=== PATIENT | male | born 1955 | race Caucasian/White ===

== ENCOUNTER → 2024-03-24 | Day surgery (SDC) | payer BC | END | disposition home or self-care (01) | LOC: JRADIR 12:28 | PROVIDERS: ATTEND Orthopaedic Surgery | PROC: 0R9K3ZZ Drainage of Left Shoulder Joint, Percutaneous Approach (ICD-10-PCS; principal; 2024-03-24) | DX: M25.512 Pain in left shoulder (principal) | CPT/HCPCS: 10005; 76942; 87070; 87075; 87102; 87116; 87205; 87206; 87210 ==

== ENCOUNTER 2024-04-27 06:33 | Day surgery (SDC) | payer BC, MEDICARE ==
[2024-04-22 15:57] VITALS: BMI 22.1
[2024-04-27] MEDS ORDERED: METOCLOPRAMIDE HCL INJECTION 10 MG/2 ML VIAL ONE (07:02)
[2024-04-27] MEDS ORDERED: ONDANSETRON 4 MG/2 ML VIAL ONE (07:02)
[2024-04-27] MEDS ORDERED: DEXAMETHASONE SOD PHOSPHATE 4 MG/1 ML VIAL ONE (07:02)
[2024-04-27] MEDS ORDERED: ceFAZolin SODIUM 1 GM VIAL ONE (07:02)
[2024-04-27] MEDS ORDERED: VANCOMYCIN 1,000 MG VIAL (RESTRICTED TO ID ONLY) ONE ×2 (07:02→07:08)
[2024-04-27] MEDS ORDERED: TRANEXAMIC ACID 1000 MG/10 ML VIAL ONE ×2 (07:02→07:08)
[2024-04-27] MEDS ORDERED: PHENYLEPHRINE HCL 10 MG/1 ML SINGLE DOSE VIAL ONE ×2 (07:03→07:08)
[2024-04-27] MEDS ORDERED: ROCURONIUM BROMIDE 50 MG/5 ML SYRINGE ONE ×2 (07:04→09:10)
[2024-04-27] MEDS ORDERED: SUCCINYLCHOLINE CHLORIDE 200 MG/10 ML SYRINGE ONE (07:04)
[2024-04-27] MEDS ORDERED: PROPOFOL 20 ML ONE ×3 (07:04→11:36)
[2024-04-27] MEDS ORDERED: MIDAZOLAM HCL 2 MG/2 ML SINGLE DOSE VIAL ONE (07:05)
[2024-04-27] MEDS ORDERED: BUPIVACAINE LIPOSOME/PF (EXPAREL) 266 MG/20 ML VIAL ONE (07:14)
[2024-04-27] MEDS ORDERED: BUPIVACAINE HCL/PF 0.5% (5MG/ML) 10 ML VIAL ONE (07:14)
[2024-04-27] MEDS ORDERED: GLYCOPYRROLATE 0.2 MG/1 ML VIAL ONE (08:09)
[2024-04-27] MEDS ORDERED: NALOXONE HCL 0.4 MG/ML VIAL IVPUSH PRN (08:49)
[2024-04-27] MEDS ORDERED: oxyCODONE HCL 5 MG TABLET PO PRN ×2 (08:49)
[2024-04-27] MEDS ORDERED: ONDANSETRON 4 MG/2 ML VIAL IVPUSH PRN ×2 (08:49→12:24)
[2024-04-27] MEDS ORDERED: SUGAMMADEX SODIUM 200 MG/2 ML VIAL ONE (09:10)
[2024-04-27] MEDS ORDERED: ACETAMINOPHEN INJECTION 100 ML ONE (10:31)
[2024-04-27] MEDS: TRANEXAMIC ACID 1000 MG/10 ML VIAL IVPB ONE ×2 (11:05)
[2024-04-27] MEDS: VANCOMYCIN 1,000 MG VIAL (RESTRICTED TO ID ONLY) IVPB ONE ×2 (11:13)
[2024-04-27] MEDS ORDERED: MAGNESIUM HYDROX 2400MG/30ML ORAL SUSPENSION 30 ML CUP PO PRN (12:24)
[2024-04-27] MEDS ORDERED: MAG HYDROX/AL HYDROX/SIMETH 30 ML UNIT-DOSE CUP PO PRN (12:24)
[2024-04-27] MEDS: LACTATED RINGERS SOLUTION 1,000 ML IV SCH ×2 (13:42→13:43)
[2024-04-27] MEDS: ACETAMINOPHEN 500 MG TABLET (FP) PO SCH (13:42)
[2024-04-27] MEDS: DOCUSATE SODIUM 100 MG CAPSULE (FP) PO SCH (13:42)
[2024-04-27] MEDS: CEFAZOLIN SODIUM 2 GM in DEXTROSE 5%-WATER 100 ML IVPB SCH (16:47)
[2024-04-27] MEDS: VANCOMYCIN/WATER FOR INJ (PEG) 1,000 MG/200 ML BAG IVPB ONE (21:22)
[2024-04-27] MEDS: ATORVASTATIN CA 10 MG TABLET (FP) PO SCH (21:22)
[2024-04-27] MEDS: SENNOSIDES/DOCUSATE COMBO (SENNA PLUS) TABLET (UD) PO SCH (21:28)
[2024-04-28] MEDS: ASPIRIN 325 MG TABLET PO SCH (07:50)
[2024-04-28 09:03] LABS: CALCIUM 8.7 mg/dl (8.5-10.1); CREATININE 0.7 mg/dl (0.6-1.3); HEMATOCRIT 39.9 % (35.4-49); HEMOGLOBIN 12.7 G/dL (11.7-16.9); MCH 32.8 pg (25.7-33.7); MCHC 31.8 g/dl (32.0-35.9); MEAN CELL VOLUME 103.4 fl (80-96); MEAN PLT VOLUME 7.6 fl (7.5-11.1); PLATELET COUNT 182.9 10^3/uL (134-434); POTASSIUM 4.1 mmol/L (3.5-5.1); RBC 3.86 10^6/uL (4.00-5.60); RDW 13.8 % (11.9-15.9); WHITE BLOOD COUNT 10.6 10^3/uL (4.0-10.8)
[2024-04-28] MEDS: PANTOPRAZOLE 40 MG TABLET PO SCH (09:37)
[2024-04-28] MEDS: MULTIVITAMINS (DAILY MVI) TABLET (FP) PO SCH (09:37)
[2024-04-28] MEDS: DUTASTERIDE 0.5 MG CAP (FP) PO SCH (09:38)
[2024-04-28 11:13] VITALS: BP 166/87; PULSE 78; RESP 19; TEMP 98.1
== END 2024-04-28 13:20 | disposition home or self-care (01) ==
LOC: SUATTDRO 06:33 → FASUSAT 06:33 → FM/S 13:02 → FASUSAT 04-28 13:20
PROVIDERS: ATTEND Internal Medicine
PROC: 0RWK0J7 Revision of Synthetic Substitute in Left Shoulder Joint, Glenoid Surface, Open Approach (ICD-10-PCS; principal; 2024-04-27 08:39)
PROC: 0QP104Z Removal of Internal Fixation Device from Sacrum, Open Approach (ICD-10-PCS; 2024-04-27 08:39)
DX: M19.012 Primary osteoarthritis, left shoulder (principal); M75.102 Unspecified rotator cuff tear or rupture of left shoulder, not specified as traumatic; M75.22 Bicipital tendinitis, left shoulder; T84.84XA Pain due to internal orthopedic prosthetic devices, implants and grafts, initial encounter; Y92.9 Unspecified place or not applicable; Y93.9 Activity, unspecified
CPT/HCPCS: 36415; 73030-TC-LT-FY; 80048; 85027; 87070; 87076; 87205; 88305-TC; 88311-TC; 94760; 97116-GP; 97162-GP; C1713; C1776; J0131

== ENCOUNTER 2024-06-30 17:36 | Inpatient (IN) | payer BC, OTHER ==
[2024-06-30] MEDS ORDERED: VANCOMYCIN HCL 1,500 MG in DEXTROSE 5%-WATER - 500 ML IVPB ONE (18:33)
[2024-06-30 18:44] LABS: BASO % 0.4 % (0-2.0); EOS % 5.3 % (0-4.5); HEMATOCRIT 44.7 % (35.4-49); HEMOGLOBIN 14.9 GM/dL (11.7-16.9); LYMPH % 26.2 % (8-40); MCH 32.5 pg (25.7-33.7); MCHC 33.3 g/dl (32.0-35.9); MEAN CELL VOLUME 97.7 fl (80-96); MONO % 7.1 % (3.8-10.2); PLATELET COUNT 187 10^3/uL (134-434); RBC 4.58 M/mm3 (4.00-5.60); RDW 13.5 % (11.9-15.9); WHITE BLOOD COUNT 5.7 K/mm3 (4.0-10.0)
[2024-06-30 18:58] LABS: INR 1.05 (0.83-1.09); PROTHROMBIN TIME (PATIENT) 11.9 SEC (9.7-13.0)
[2024-06-30 19:00] LABS: ACTIVATED PTT 31.6 SECONDS (25.2-36.5)
[2024-06-30 19:10] LABS: CHLORIDE 105 mmol/L (98-107); POTASSIUM 4.1 mmol/L (3.5-5.1); SODIUM 140 mmol/L (136-145)
[2024-06-30 19:11] LABS: CALCIUM 8.9 mg/dL (8.5-10.1)
[2024-06-30 19:12] LABS: ALBUMIN 3.7 g/dl (3.4-5.0); ANION GAP 5 mmol/L (4-13); BLOOD UREA NITROGEN 13.8 mg/dL (7-18); CO2 31 mmol/L (21-32); GLUCOSE,RANDOM 115 mg/dL (74-106)
[2024-06-30 19:15] LABS: CREATININE 0.8 mg/dL (0.55-1.3); SGOT/AST 20 U/L (15-37); SGPT/ALT 17 U/L (13-61)
[2024-06-30 19:17] LABS: BILIRUBIN,TOTAL 0.6 mg/dL (0.2-1); TOT PROT 7.4 g/dl (6.4-8.2)
[2024-06-30 19:18] LABS: ALK PHOS 146 U/L (45-117)
[2024-06-30] MEDS: VANCOMYCIN PREMIX 1.5 GM 1,500 MG/300 ML BAG IVPB ONE (19:25)
[2024-06-30 19:53] LABS: ERYTHROCYTE SEDIMENTATION RATE 5 mm/hr (0-20)
[2024-06-30] MEDS: NIFEdipine E.R. 30 MG TABLET PO ONE (21:33)
[2024-07-01 00:13] VITALS: BMI 23.0
[2024-07-01] MEDS: CLINDAMYCIN 600MG PREMIX IVPB 600 MG/50 ML BAG IVPB SCH (03:55)
[2024-07-01] MEDS: TAMSULOSIN HCL 0.4 MG CAP PO SCH (08:57)
[2024-07-01 09:31] LABS: BASO % 0.7 % (0-2.0); EOS % 6.8 % (0-4.5); HEMATOCRIT 44.1 % (35.4-49); LYMPH % 21.2 % (8-40); MCHC 33.9 g/dl (32.0-35.9); MEAN CELL VOLUME 97.2 fl (80-96); MEAN PLT VOLUME 7.1 fl (7.5-11.1); MONO % 5.5 % (3.8-10.2); NEUT % 65.8 % (42.8-82.8); PLATELET COUNT 199 10^3/uL (134-434); RBC 4.54 M/mm3 (4.00-5.60); RDW 13.5 % (11.9-15.9); WHITE BLOOD COUNT 4.9 K/mm3 (4.0-10.0)
[2024-07-01 09:50] LABS: POTASSIUM 3.9 mmol/L (3.5-5.1)
[2024-07-01 09:57] LABS: ALBUMIN 3.6 g/dl (3.4-5.0); BLOOD UREA NITROGEN 9.8 mg/dL (7-18); CALCIUM 9.1 mg/dL (8.5-10.1)
[2024-07-01 09:59] LABS: BILIRUBIN,TOTAL 0.9 mg/dL (0.2-1); CREATININE 0.8 mg/dL (0.55-1.3); TOT PROT 7.2 g/dl (6.4-8.2)
[2024-07-01] MEDS: ENOXAPARIN NA (PORCINE) 40 MG/0.4 ML DISP.SYRIN SQ SCH (10:00)
[2024-07-01 10:01] LABS: PHOSPHOROUS 3.5 mg/dL (2.5-4.9)
[2024-07-01] MEDS: DUTASTERIDE 0.5 MG CAP (FP) PO SCH (11:14)
[2024-07-01] MEDS ORDERED: NIFEdipine E.R. 30 MG TABLET PO ONE (21:01)
[2024-07-01] MEDS: ATORVASTATIN CA 10 MG TABLET (FP) PO SCH (21:28)
[2024-07-02] MEDS: CEFTRIAXONE 1 G/50 ML PREMIX 50 ML IVPB ONE (00:30)
[2024-07-02 07:36] LABS: BASO % 0.4 % (0-2.0); EOS % 6.7 % (0-4.5); HEMATOCRIT 45.3 % (35.4-49); HEMOGLOBIN 15.3 GM/dL (11.7-16.9); LYMPH % 25.8 % (8-40); MCH 33.1 pg (25.7-33.7); MCHC 33.8 g/dl (32.0-35.9); MEAN CELL VOLUME 97.8 fl (80-96); MEAN PLT VOLUME 7.2 fl (7.5-11.1); MONO % 7.2 % (3.8-10.2); NEUT % 59.9 % (42.8-82.8); PLATELET COUNT 204 10^3/uL (134-434); RBC 4.63 M/mm3 (4.00-5.60); RDW 13.7 % (11.9-15.9); WHITE BLOOD COUNT 4.8 K/mm3 (4.0-10.0)
[2024-07-02 07:47] LABS: POTASSIUM 4.2 mmol/L (3.5-5.1)
[2024-07-02 07:50] LABS: ALBUMIN 3.8 g/dl (3.4-5.0); CALCIUM 8.9 mg/dL (8.5-10.1)
[2024-07-02 07:54] LABS: CREATININE 0.8 mg/dL (0.55-1.3)
[2024-07-02 07:56] LABS: BILIRUBIN,TOTAL 0.9 mg/dL (0.2-1); TOT PROT 7.4 g/dl (6.4-8.2)
[2024-07-02 09:04] VITALS: RESP 17; TEMP 97.3
[2024-07-02] MEDS: VANCOMYCIN 1 GM PREMIX (F) 1 GM/200 ML BAG IVPB ONE (10:57)
[2024-07-02 13:37] VITALS: BP 151/77; PULSE 55
== END 2024-07-02 14:58 | disposition home or self-care (01) | DRG 863 ==
LOC: JER 17:36 → JERBED 19:21 → J7W 20:32
PROVIDERS: ADMIT Internal Medicine; ATTEND Internal Medicine
DX: T81.41XA Infection following a procedure, superficial incisional surgical site, initial encounter (principal); L03.114 Cellulitis of left upper limb; E78.5 Hyperlipidemia, unspecified; I10 Essential (primary) hypertension; I48.91 Unspecified atrial fibrillation; N40.0 Benign prostatic hyperplasia without lower urinary tract symptoms; Y83.8 Other surgical procedures as the cause of abnormal reaction of the patient, or of later complication, without mention of misadventure at the time of the procedure
CPT/HCPCS: 36415; 73030-TC-LT-FY; 80053; 83735; 84100; 85025; 85610; 85651; 85730; 86140; 86850; 86900; 86901; 87040; 93005; 93010; 99285-25